=== PATIENT | female | born 1945 | race Caucasian/White ===

== ENCOUNTER → 2018-10-10 | Outpatient (CLI) | payer MEDICARE, OTHER | LOC: MHCPAIN 10:34 | DX: G89.29 Other chronic pain (principal); M47.817 Spondylosis without myelopathy or radiculopathy, lumbosacral region; M54.16 Radiculopathy, lumbar region; M53.3 Sacrococcygeal disorders, not elsewhere classified; M96.1 Postlaminectomy syndrome, not elsewhere classified | CPT/HCPCS: G0463 ==

== ENCOUNTER → 2018-10-13 | Outpatient (CLI) | payer MEDICARE, OTHER | LOC: MHCPAIN 12:32 | DX: M47.817 Spondylosis without myelopathy or radiculopathy, lumbosacral region (principal); M54.16 Radiculopathy, lumbar region ==

== ENCOUNTER → 2018-11-16 | Outpatient (CLI) | payer MEDICARE, OTHER | LOC: MHCPAIN 10:52 | DX: G89.29 Other chronic pain (principal); M47.817 Spondylosis without myelopathy or radiculopathy, lumbosacral region; M54.16 Radiculopathy, lumbar region; M53.3 Sacrococcygeal disorders, not elsewhere classified; M96.1 Postlaminectomy syndrome, not elsewhere classified | CPT/HCPCS: G0463 ==

== ENCOUNTER → 2018-11-24 | Outpatient (CLI) | payer MEDICARE, OTHER | LOC: MHCPAIN 13:58 | DX: M47.817 Spondylosis without myelopathy or radiculopathy, lumbosacral region (principal); M54.16 Radiculopathy, lumbar region; M96.1 Postlaminectomy syndrome, not elsewhere classified | CPT/HCPCS: J1100; Q9967 ==

== ENCOUNTER → 2018-12-08 | Outpatient (CLI) | payer MEDICARE, OTHER | LOC: MHCPAIN 12:37 | DX: G89.29 Other chronic pain (principal); M47.817 Spondylosis without myelopathy or radiculopathy, lumbosacral region; M54.16 Radiculopathy, lumbar region; M53.3 Sacrococcygeal disorders, not elsewhere classified | CPT/HCPCS: G0463; J1040; Q9967 ==

== ENCOUNTER → 2018-12-28 | Outpatient (CLI) | payer MEDICARE, OTHER | LOC: MHCPAIN 15:07 | DX: G89.29 Other chronic pain (principal); M47.817 Spondylosis without myelopathy or radiculopathy, lumbosacral region; M54.16 Radiculopathy, lumbar region; M53.3 Sacrococcygeal disorders, not elsewhere classified; M96.1 Postlaminectomy syndrome, not elsewhere classified | CPT/HCPCS: G0463 ==

== ENCOUNTER → 2018-12-29 | Outpatient (CLI) | payer MEDICARE, OTHER | LOC: MHCPAIN 10:52 | DX: M47.817 Spondylosis without myelopathy or radiculopathy, lumbosacral region (principal); M54.16 Radiculopathy, lumbar region; M96.1 Postlaminectomy syndrome, not elsewhere classified | CPT/HCPCS: J1100; Q9967 ==

== ENCOUNTER → 2019-02-01 | Outpatient (CLI) | payer MEDICARE, OTHER | LOC: MHCPAIN 12:30 | DX: G89.29 Other chronic pain (principal); M47.817 Spondylosis without myelopathy or radiculopathy, lumbosacral region; M54.16 Radiculopathy, lumbar region; M53.3 Sacrococcygeal disorders, not elsewhere classified | CPT/HCPCS: G0463 ==

== ENCOUNTER → 2019-02-09 | Outpatient (CLI) | payer MEDICARE, OTHER ==
[2019-02-09 14:57] LABS: CREATININE, serum 0.8 (0.52-1.25)
== END ==
LOC: COL.RAD 14:06
PROVIDERS: Anesthesiology Pain Medicine
DX: Z01.812 Encounter for preprocedural laboratory examination (principal); M43.16 Spondylolisthesis, lumbar region; M51.26 Other intervertebral disc displacement, lumbar region; M96.1 Postlaminectomy syndrome, not elsewhere classified; G89.29 Other chronic pain; M53.3 Sacrococcygeal disorders, not elsewhere classified; M47.817 Spondylosis without myelopathy or radiculopathy, lumbosacral region
CPT/HCPCS: A9585